=== PATIENT | male | born 1950 | race Hispanic/Latino ===

== ENCOUNTER 2017-09-26 07:38 | Day surgery (SDC) | payer MEDICARE ==
[~2017-09-26 07:38] MED LIST: NACL 0.9% 1000 ML 1,000 ML IV SCH
[2017-09-26] MEDS ORDERED: WATER FOR IRRIG STERILE IR ONE (08:58)
[2017-09-26] MEDS ORDERED: DIPRIVAN 10 MG/ML IV ONE ×3 (08:59→09:37)
--- NOTE | 2017-09-26 09:04 | Anesthesia Consultation ---
Anesthesia Consult and Med Hx Date of service: 09/26/17 - Airway Anesthetic Teeth Evaluation: Good ROM Head & Neck: Adequate Mental/Hyoid Distance: Adequate Mallampati Class: Class II Intubation Access Assessment: Probably Good - Pulmonary Exam CTA: Yes - Cardiac Exam Cardiac Exam: RRR - Pre-Operative Health Status ASA Pre-Surgery Classification: ASA3 Proposed Anesthetic Plan: General - Pulmonary Hx Smoking: Yes COPD: Yes - Cardiovascular System Hx Hypertension: Yes Hx Coronary Artery Disease: Yes - Other Systems Hx Alcohol Use: Yes
--- NOTE | 2017-09-26 09:05 | Anesthesia Day of Surgery ---
Anesthesia Day of Surgery - Day of Surgery Patient Examined: Yes Patient H&P Reviewed: Yes Patient is NPO: Yes
[2017-09-26] MEDS ORDERED: KETALAR ONE (09:06)
--- NOTE | 2017-09-26 10:02 | Short Stay Summary ---
Short Stay Documentation Date of service: 09/26/17 Narrative H&P: The patient presents for EGD for dysphagia and chronic GERD symptoms and for surveillance colonoscopy for history of polyps - History Past Medical History: hypertension, other (morbid obesity, gout) Past Surgical History: Other (hemorrhoid surgery) Social history: no significant social history, other (drinks at least 3 beers per day), no smoking - Allergies and Medications Current Medications: Allergies No Known Allergies Allergy (Verified 12/19/12 09:11) Home Medications Medication Instructions Recorded Confirmed Last Taken Type Allopurinol [Zyloprim] 100 mg PO QDAY 12/19/12 12/19/12 12/18/12 History Atenolol [Tenormin] 100 mg PO DAILY 12/19/12 12/19/12 12/19/12 History Atorvastatin Calcium [Lipitor] 20 mg PO QHS 12/19/12 12/19/12 12/18/12 History Clopidogrel [Plavix] 75 mg PO QDAY 12/19/12 12/19/12 12/19/12 History Enalapril Maleate [Vasotec] 10 mg PO 12/19/12 12/19/12 12/19/12 History Probenecid/Colchicine 1 each PO 12/19/12 12/19/12 12/18/12 History [Probenecid-Colchicine Tabs] Active Medications Sodium Chloride (Nacl 0.9% 1000 Ml) 1,000 mls @ 50 mls/hr IV DIRECT TORIN Last Admin: 09/26/17 08:19 Dose: 50 mls/hr - Physical exam General appearance: no acute distress, well-nourished, obese Integumentary: no rash, no growths, no abnormal pigmentation HEENT: Atraumatic, PERRLA, EOMI, Mucous membr. moist/pink Lungs: Clear to auscultation, Normal air movement Breasts: deferred Heart: Regular rate, Normal S1, Normal S2, No murmurs, Gallops Gastrointestinal: normoactive bowel sounds, no tenderness, no distended, no masses, no guarding, no organomegaly, obese Male Genitourinary: normal Rectal Exam: normal exam-external/orifice, normal rectal tone Extremities: no ischemia, pulses intact, pulses symmetrical, No edema, normal temperature, normal color, Full ROM Neurological: Normal gait, Normal speech, Strength at 5/5 X4 ext, Normal tone, Sensation intact, Cranial nerves 3-12 NL - Brief post op/procedure progress note Date of procedure: 09/26/17 Findings: see dictated reports. Estimated blood loss: none Pathology: list (1. biopsies of distal esophagus for possible Barretts. 2. transverse colon polyp 3. 3 descending colon polyps) - Disposition Condition at discharge: Good Disposition: DC-01 TO HOME OR SELFCARE - Discharge Diagnoses (1) GERD (gastroesophageal reflux disease) Status: Acute (2) Dysphagia Status: Acute (3) History of colon polyps Status: Acute Short Stay Discharge Plan Activity: other (no driving for 24 hours. Restart plavix in 3 days) Weight Bearing Status: Weight Bear as Tolerated Diet: regular Follow up with: RANDALL TEE MD [Primary Care Provider] - 7 Days
--- NOTE | 2017-09-26 10:06 | Operative Report ---
Operative Report Operative Report: Date of procedure: 09/26/2017 Preprocedure diagnosis: History of colon polyps. Post procedure diagnosis: One small transverse colon polyp and 3 small descending colon polyps. Few scattered left colon diverticula. Procedure: Colonoscopy to the cecum with cold snare polypectomy 4. Endoscopist: Dr. Thomas Anesthesia: Monitored anesthesia care per anesthesia department Estimated blood loss: 0 Medications: Monitored anesthesia care. See separate report by anesthesia for details. After careful discussion of the nature and purpose of the procedure as well as details of the technique risks benefits and alternatives the patient gave consent. Please see recent history and physical from the office. The patient was placed in the left lateral decubitus position and medicated per anesthesia. A rectal exam was performed sphincter tone was normal there were no masses palpable. The Perkn 570 scope was passed transanally and advanced under continuous direct vision without difficulty to the cecum. The colon was well prepared. The cecum was normal. The ascending colon was normal and on forward and retroflexed views. The transverse colon revealed a 6 mm sessile polyp. The polyp was removed with cold snare resection and retrieved by suction. There were 3 small polyps in the descending colon which were all sessile between 4 and 6 mm in size. All 3 are removed with snare resection and retrieved by suction. Bleeding was encountered. Otherwise a few scattered diverticula were noted in the descending colon and sigmoid colon. The rectum was normal on forward and retroflexed views. The procedure was well-tolerated overall and the patient was observed in recovery. Conclusions: 1 transverse colon polyp. 3 small descending colon polyps. Few scattered diverticula in the left colon. Plan: Await pathology. Follow-up colonoscopy in 3-5 years depending upon the pathology report. Signed electronically: Gonzalez Thomas M.D.
--- NOTE | 2017-09-26 10:10 | Operative Report ---
Operative Report Operative Report: Date of procedure: 09/26/2017 Procedure: Esophagogastroduodenoscopy with biopsies of the distal esophagus for possible Fonseca's. Esophageal [id number]-52-50 mm by [id number] balloon. Preprocedure diagnosis: Dysphagia. Chronic GERD. Post procedure diagnosis: 2 cm tongue of salmon pink mucosa in the distal esophagus suspicious for Fonseca's. No definite esophageal stricture. Endoscopist: Dr. Thomas Anesthesia: Monitored anesthesia care per anesthesia department Medications: Propofol per anesthesia Estimated blood loss: 0 After careful discussion of the nature and purpose of the procedure as well as details the technique risks benefits and alternatives consent was obtained. The patient was placed in the left lateral decubitus position and medicated per anesthesia. The tip of the [employer] EQ 570 video scope was passed per orum under direct vision into the esophagus and advanced into the stomach and descending duodenum. The descending duodenum the duodenal bulb and pylorus were symmetrical and normal. The scope was withdrawn into the stomach and the stomach then gently insufflated with air. The antrum was normal. The stomach was further insufflated and the scope was then retroflexed and partially withdrawn. The cardia, fundus, and body of the stomach were within normal limits and easily distensible.The scope was then withdrawn in the forward position. The esophagogastric junction was at 40 cm. There was a 2 cm salmon pink tongue of mucosa extending from the Z line suspicious for Fonseca's. Multiple biopsies were taken. No definite stricture was present and dilation was performed empirically due to symptoms of dysphagia. A 15-18 mm through-the- scope balloon was utilized and the EG junction was dilated over 2 minutes.. The esophageal body was normal throughout. The procedure was was well tolerated and the patient was observed in recovery. Impressions: Possible Fonseca's versus healing esophagitis. No definite esophageal stricture. Stomach and duodenum were normal. Plan: Await pathology results. Continue acid suppression therapy. Office follow-up in a few months. Electronically signed: Gonzalez Thomas MD
[2017-09-26 10:27] VITALS: BP 116/51
== END 2017-09-26 07:39 | disposition home or self-care (01) ==
LOC: GIO 07:38 → EDBD 08:45
PROVIDERS: ATTEND Internal Medicine Gastroenterology
DX: Z12.11 Encounter for screening for malignant neoplasm of colon (principal); D12.3 Benign neoplasm of transverse colon; D12.4 Benign neoplasm of descending colon; K57.30 Diverticulosis of large intestine without perforation or abscess without bleeding; K21.0 Gastro-esophageal reflux disease with esophagitis; K22.9 Disease of esophagus, unspecified; I10 Essential (primary) hypertension; I25.10 Atherosclerotic heart disease of native coronary artery without angina pectoris; J44.9 Chronic obstructive pulmonary disease, unspecified; M10.9 Gout, unspecified; E66.01 Morbid (severe) obesity due to excess calories; F17.200 Nicotine dependence, unspecified, uncomplicated; Z68.39 Body mass index [BMI] 39.0-39.9, adult; Z98.890 Other specified postprocedural states; Z79.899 Other long term (current) drug therapy
CPT/HCPCS: 43239; 43249; 45385; 88305; C1726; J2704; J7030